=== PATIENT | male | born 1930 | race Caucasian/White ===

== ENCOUNTER 2017-11-28 14:07 | Inpatient (IN) | payer MEDICARE ==
[~2017-11-28] VITALS: Ht 181.6 cm; Wt 78.0 kg
[2017-11-28 14:48] LABS: BASOPHILS % (AUTO) 0.4 % (0.0-5.0); EOSINOPHILS % (AUTO) 2.6 % (0.0-8.0); HEMATOCRIT 35.1 % (42-54); LYMPHOCYTES % (AUTO) 25.6 % (21.0-51.0); MEAN CORPUSCULAR HEMOGLOBIN 31.2 pg (27.0-33.0); MEAN CORPUSCULAR HGB CONC 34.5 g/dL (32.0-36.0); MEAN CORPUSCULAR VOLUME 90.4 fL (79-99); MONOCYTES % (AUTO) 10.4 % (3.0-13.0); PLATELET COUNT (AUTO) 206 K/uL (130-400); RED BLOOD CELL COUNT(AUTO) 3.88 MIL/uL (4.50-6.20); RED CELL DISTRIBUTION WIDTH 13.5 % (11.0-15.5); WHITE BLOOD COUNT (AUTO) 6.7 K/uL (4.8-10.8)
[2017-11-28 15:05] LABS: CREATININE 1.7 mg/dL (0.5-1.5); POTASSIUM 3.7 mmol/L (3.5-5.1)
[2017-11-28 15:07] LABS: INR 0.95 (0.85-1.15); PARTIAL THROMBOPLASTIN TIME 28.2 SEC (26.3-35.5)
[2017-11-28] MEDS ORDERED: GUAIFENESIN-DM 200/20 MG 10 ML PO PRN (17:00)
[2017-11-28] MEDS ORDERED: ZOLPIDEM TARTRATE 5 MG TAB PO PRN (17:00)
[2017-11-28] MEDS ORDERED: MORPHINE SULFATE 2 MG/ML 1ML SYG IV PRN (17:00)
[2017-11-28] MEDS ORDERED: HYDRALAZINE HCL 20 MG/ML VIAL IV PRN (17:00)
[2017-11-28] MEDS ORDERED: LACTULOSE 20 GM/30 ML UDCUP PO PRN (17:00)
[2017-11-28] MEDS ORDERED: ACETAMINOPHEN-CODEINE 300/30MG TAB PO PRN (17:00)
[2017-11-28] MEDS ORDERED: ONDANSETRON HCL 4 MG/2 ML VIAL IV PRN (17:00)
[2017-11-28 19:45] VITALS: BP 121/64
[2017-11-29 00:30] VITALS: BP 129/72
[2017-11-29] MEDS ORDERED: AMLO5TAB2 PO (01:41)
[2017-11-29] MEDS ORDERED: HYDR12.530 PO (01:41)
[2017-11-29] MEDS ORDERED: ATEN25TA PO (01:41)
[2017-11-29] MEDS ORDERED: MULT-1258 PO (01:41)
[2017-11-29] MEDS ORDERED: PRAV20TA4 PO (01:41)
[2017-11-29] MEDS ORDERED: DORZ10DR14 OD (01:41)
[2017-11-29 05:04] VITALS: BP 128/70
[2017-11-29] MEDS ORDERED: CEFAZOLIN SODIUM 1 GM VIAL IVP SCH (06:30)
[2017-11-29 07:30] VITALS: BP 120/59
[2017-11-29] MEDS: ATENOLOL 25 MG TABLET PO SCH (08:59)
[2017-11-29] MEDS ORDERED: MULTIVITAMIN WITH MINERALS TABLET PO SCH (09:00)
[2017-11-29] MEDS: ENOXAPARIN SODIUM 40 MG/0.4 ML SYRINGE SQ SCH (09:00)
[2017-11-29] MEDS ORDERED: DORZOLAMIDE HCL/TIMOLOL MALEAT DROPS 10 ML BOTTLE OD SCH (09:00)
[2017-11-29] MEDS ORDERED: CEFAZOLIN 2GM / 50 ML 50 ML IV ONE (09:00)
[2017-11-29] MEDS: AMLODIPINE BESYLATE 5 MG TAB PO SCH (09:00)
[2017-11-29] MEDS: DORZOLAMIDE HCL/TIMOLOL MALEAT DROPS 10 ML BOTTLE OD SCH ×2 (09:00→20:35)
[2017-11-29] MEDS: PANTOPRAZOLE SODIUM 40 MG TABLET.DR PO SCH (09:00)
[2017-11-29] MEDS: HYDROCHLOROTHIAZIDE 25 MG TABLET PO SCH (09:00)
[2017-11-29 11:30] VITALS: BP 118/65
[2017-11-29] MEDS ORDERED: WATER FOR INJECTION,STERILE 20 ML VIAL IJ SCH (11:30)
[2017-11-29] MEDS: CEFAZOLIN SODIUM 1 GM VIAL IVP SCH (11:30)
[2017-11-29] MEDS: MULTIVITAMIN TABLET PO SCH (11:32)
[2017-11-29] MEDS ORDERED: LIDOCAINE PF 2% 5ML ABBOJECT ONE (13:13)
[2017-11-29] MEDS ORDERED: MIDAZOLAM HCL 1 MG/ML 2ML VIAL ONE (13:13)
[2017-11-29] MEDS ORDERED: PROPOFOL 10 MG/ML 20ML VIAL IV ONE (13:13)
[2017-11-29] MEDS ORDERED: DEXAMETHASONE SOD PHOSPHATE 10MG/ML 1ML VIAL ONE (13:13)
[2017-11-29] MEDS ORDERED: SUCCINYLCHOLINE 200MG/10ML SYR ONE (13:13)
[2017-11-29] MEDS ORDERED: GLYCOPYRROLATE 0.2 MG/ML 5 ML VIAL ONE (13:13)
[2017-11-29] MEDS ORDERED: ONDANSETRON HCL 4 MG/2 ML VIAL ONE (13:13)
[2017-11-29] MEDS ORDERED: FENTANYL CITRATE PF 50 MCG/1 ML 2ML VIAL ONE (13:14)
[2017-11-29 16:00] VITALS: BP 125/64
[2017-11-29 20:17] VITALS: BP 130/64
[2017-11-29] MEDS: ATORVASTATIN CALCIUM 10 MG TABLET PO SCH (20:35)
[2017-11-30] VITALS (23 sets, daily range): BP systolic 102–139; BP diastolic 41–75
[2017-11-30 05:40] LABS: BASOPHILS % (AUTO) 0.3 % (0.0-5.0); EOSINOPHILS % (AUTO) 1.3 % (0.0-8.0); HEMATOCRIT 29.8 % (42-54); LYMPHOCYTES % (AUTO) 22.8 % (21.0-51.0); MEAN CORPUSCULAR HEMOGLOBIN 31.5 pg (27.0-33.0); MEAN CORPUSCULAR HGB CONC 34.9 g/dL (32.0-36.0); MEAN CORPUSCULAR VOLUME 90.2 fL (79-99); NEUTROPHILS % (AUTO) 62.6 % (40.0-77.0); PLATELET COUNT (AUTO) 163 K/uL (130-400); RED CELL DISTRIBUTION WIDTH 13.2 % (11.0-15.5); WHITE BLOOD COUNT (AUTO) 7.9 K/uL (4.8-10.8)
[2017-11-30 06:05] LABS: ALBUMIN 2.8 g/dL (3.5-5.0); CREATININE 1.7 mg/dL (0.5-1.5); POTASSIUM 4.1 mmol/L (3.5-5.1); TOTAL PROTEIN, SERUM 5.7 g/dL (6.0-8.3)
[2017-11-30] MEDS: HYDROCHLOROTHIAZIDE 25 MG TABLET PO SCH (09:00)
[2017-11-30] MEDS: MULTIVITAMIN TABLET PO SCH (09:00)
[2017-11-30] MEDS: ENOXAPARIN SODIUM 40 MG/0.4 ML SYRINGE SQ SCH (09:00)
[2017-11-30] MEDS: AMLODIPINE BESYLATE 5 MG TAB PO SCH (09:00)
[2017-11-30] MEDS: DORZOLAMIDE HCL/TIMOLOL MALEAT DROPS 10 ML BOTTLE OD SCH ×2 (09:00→22:15)
[2017-11-30] MEDS: ATENOLOL 25 MG TABLET PO SCH (09:55)
[2017-11-30] MEDS ORDERED: LACTATED RINGERS 1000ML 1,000 ML IV ONE (10:50)
[2017-11-30] MEDS ORDERED: DEXAMETHASONE SOD PHOSPHATE 10MG/ML 1ML VIAL ONE (15:45)
[2017-11-30] MEDS ORDERED: ONDANSETRON HCL 4 MG/2 ML VIAL ONE (15:45)
[2017-11-30] MEDS ORDERED: LIDOCAINE PF 2% 5ML ABBOJECT ONE (15:45)
[2017-11-30] MEDS ORDERED: PROPOFOL 10 MG/ML 20ML VIAL IV ONE (15:45)
[2017-11-30] MEDS ORDERED: ROCURONIUM BROMIDE 10MG/1ML 5ML VL ONE (15:45)
[2017-11-30] MEDS ORDERED: ROPIVACAINE 0.5% 5MG/ML 30ML IJ ONE (15:46)
[2017-11-30] MEDS ORDERED: FENTANYL CITRATE PF 50 MCG/1 ML 2ML VIAL ONE (16:09)
[2017-11-30] MEDS: CEFAZOLIN SODIUM 1 GM VIAL IVP SCH (16:40)
[2017-11-30] MEDS ORDERED: PHENYLEPHRINE HCL 10 MG/ML 1ML VIAL IV ONE (17:05)
[2017-11-30] MEDS: PANTOPRAZOLE SODIUM 40 MG TABLET.DR PO SCH (18:27)
[2017-11-30] MEDS ORDERED: IPRATROPIUM/ALBUTEROL SULFATE 3 ML SOLUTION IH ONE (20:58)
[2017-11-30] MEDS: ATORVASTATIN CALCIUM 10 MG TABLET PO SCH (22:15)
[2017-11-30] MEDS ORDERED: MORPHINE SULFATE 2 MG/ML 1ML SYG IVP PRN (22:30)
[2017-12-01] VITALS (11 sets, daily range): BP systolic 96–113; BP diastolic 52–62
[2017-12-01] MEDS ORDERED: CEFAZOLIN 2GM / 50 ML 50 ML IV SCH (01:00)
[2017-12-01] MEDS: CEFAZOLIN SODIUM 1 GM VIAL IVP SCH ×2 (01:09→08:45)
[2017-12-01 05:42] LABS: BASOPHILS % (AUTO) 0.2 % (0.0-5.0); LYMPHOCYTES % (AUTO) 7.8 % (21.0-51.0); MEAN CORPUSCULAR HEMOGLOBIN 32.3 pg (27.0-33.0); MEAN CORPUSCULAR VOLUME 89.8 fL (79-99); MONOCYTES % (AUTO) 12.6 % (3.0-13.0); NEUTROPHILS % (AUTO) 79.4 % (40.0-77.0); PLATELET COUNT (AUTO) 163 K/uL (130-400); RED BLOOD CELL COUNT(AUTO) 3.01 MIL/uL (4.50-6.20); RED CELL DISTRIBUTION WIDTH 13.8 % (11.0-15.5); WHITE BLOOD COUNT (AUTO) 9.6 K/uL (4.8-10.8)
[2017-12-01 06:00] LABS: ALBUMIN 2.5 g/dL (3.5-5.0); BILIRUBIN,TOTAL 0.7 mg/dL (0.2-1.0); CREATININE 1.8 mg/dL (0.5-1.5); POTASSIUM 4.3 mmol/L (3.5-5.1); TOTAL PROTEIN, SERUM 5.3 g/dL (6.0-8.3)
[2017-12-01] MEDS ORDERED: IPRATROPIUM/ALBUTEROL SULFATE 3 ML SOLUTION IH PRN (08:30)
[2017-12-01] MEDS: DORZOLAMIDE HCL/TIMOLOL MALEAT DROPS 10 ML BOTTLE OD SCH ×2 (08:33→20:37)
[2017-12-01] MEDS: MULTIVITAMIN TABLET PO SCH (08:34)
[2017-12-01] MEDS: HYDROCHLOROTHIAZIDE 25 MG TABLET PO SCH (08:35)
[2017-12-01] MEDS: ATENOLOL 25 MG TABLET PO SCH (08:35)
[2017-12-01] MEDS: AMLODIPINE BESYLATE 5 MG TAB PO SCH (08:36)
[2017-12-01] MEDS: PANTOPRAZOLE SODIUM 40 MG TABLET.DR PO SCH (08:36)
[2017-12-01] MEDS: ENOXAPARIN SODIUM 40 MG/0.4 ML SYRINGE SQ SCH (08:37)
[2017-12-01] MEDS: IPRATROPIUM/ALBUTEROL SULFATE 3 ML SOLUTION IH SCH (18:32)
[2017-12-01] MEDS: ATORVASTATIN CALCIUM 10 MG TABLET PO SCH (20:37)
[2017-12-02 04:00] VITALS: BP 104/52
[2017-12-02 05:02] VITALS: BP 141/58
[2017-12-02 05:34] LABS: BASOPHILS % (AUTO) 0.2 % (0.0-5.0); EOSINOPHILS % (AUTO) 0.1 % (0.0-8.0); HEMATOCRIT 23.2 % (42-54); LYMPHOCYTES % (AUTO) 10.7 % (21.0-51.0); MEAN CORPUSCULAR HEMOGLOBIN 31.1 pg (27.0-33.0); MEAN CORPUSCULAR HGB CONC 34.6 g/dL (32.0-36.0); MEAN CORPUSCULAR VOLUME 89.7 fL (79-99); MONOCYTES % (AUTO) 15.7 % (3.0-13.0); NEUTROPHILS % (AUTO) 73.3 % (40.0-77.0); PLATELET COUNT (AUTO) 145 K/uL (130-400); RED BLOOD CELL COUNT(AUTO) 2.58 MIL/uL (4.50-6.20); RED CELL DISTRIBUTION WIDTH 13.2 % (11.0-15.5); WHITE BLOOD COUNT (AUTO) 11.3 K/uL (4.8-10.8)
[2017-12-02 05:44] LABS: CREATININE 2.1 mg/dL (0.5-1.5); POTASSIUM 3.5 mmol/L (3.5-5.1)
[2017-12-02] MEDS: IPRATROPIUM/ALBUTEROL SULFATE 3 ML SOLUTION IH SCH ×2 (05:59→18:28)
[2017-12-02 08:20] VITALS: BP 106/49
[2017-12-02] MEDS: ATENOLOL 25 MG TABLET PO SCH ×2 (09:00→09:06)
[2017-12-02] MEDS: HYDROCHLOROTHIAZIDE 25 MG TABLET PO SCH ×2 (09:00→09:06)
[2017-12-02] MEDS: ENOXAPARIN SODIUM 40 MG/0.4 ML SYRINGE SQ SCH (09:05)
[2017-12-02] MEDS: AMLODIPINE BESYLATE 5 MG TAB PO SCH (09:05)
[2017-12-02] MEDS: PANTOPRAZOLE SODIUM 40 MG TABLET.DR PO SCH (09:06)
[2017-12-02] MEDS: MULTIVITAMIN TABLET PO SCH (09:06)
[2017-12-02] MEDS: DORZOLAMIDE HCL/TIMOLOL MALEAT DROPS 10 ML BOTTLE OD SCH ×2 (09:07→20:19)
[2017-12-02] MEDS: SODIUM CHLORIDE 0.9% 1000ML 1,000 ML IV SCH ×2 (10:04→22:45)
[2017-12-02 11:21] VITALS: BP 111/61
[2017-12-02] MEDS ORDERED: MORPHINE SULFATE 8 MG/ML VIAL ONE (15:12)
[2017-12-02 16:10] VITALS: BP 127/61
[2017-12-02] MEDS: ATORVASTATIN CALCIUM 10 MG TABLET PO SCH (20:19)
[2017-12-02 20:44] VITALS: BP 98/53
[2017-12-03] VITALS (7 sets, daily range): BP systolic 95–141; BP diastolic 54–62
[2017-12-03 05:53] LABS: MEAN CORPUSCULAR HEMOGLOBIN 32.7 pg (27.0-33.0); MEAN CORPUSCULAR HGB CONC 36.9 g/dL (32.0-36.0); MEAN CORPUSCULAR VOLUME 88.6 fL (79-99); PLATELET COUNT (AUTO) 135 K/uL (130-400); RED BLOOD CELL COUNT(AUTO) 2.21 MIL/uL (4.50-6.20); RED CELL DISTRIBUTION WIDTH 13.5 % (11.0-15.5); WHITE BLOOD COUNT (AUTO) 10.5 K/uL (4.8-10.8)
[2017-12-03 05:57] LABS: CREATININE 1.9 mg/dL (0.5-1.5); POTASSIUM 3.2 mmol/L (3.5-5.1)
[2017-12-03] MEDS: IPRATROPIUM/ALBUTEROL SULFATE 3 ML SOLUTION IH SCH ×2 (06:00→19:26)
[2017-12-03 06:02] LABS: HEMATOCRIT 19.5 % (42-54)
[2017-12-03 07:27] LABS: LYMPHOCYTES % (MANUAL) 10 % (22-44); MAN.DIFF COMMENT-IMPRESSION MANUAL DIFFERENTIAL; MONOCYTES % (MANUAL) 10 % (2-9); PLATELET MORPHOLOGY COMMENT ADEQUATE; SEGMENTED NEUTROPHILS % 80 % (40-70)
[2017-12-03] MEDS: PANTOPRAZOLE SODIUM 40 MG TABLET.DR PO SCH (08:27)
[2017-12-03] MEDS: DORZOLAMIDE HCL/TIMOLOL MALEAT DROPS 10 ML BOTTLE OD SCH ×2 (08:27→19:14)
[2017-12-03] MEDS: MULTIVITAMIN TABLET PO SCH (08:27)
[2017-12-03] MEDS: TRAMADOL HCL 50 MG TABLET PO PRN ×2 (08:30→16:06)
[2017-12-03] MEDS: AMLODIPINE BESYLATE 5 MG TAB PO SCH (09:00)
[2017-12-03] MEDS: ATENOLOL 25 MG TABLET PO SCH (09:00)
[2017-12-03] MEDS: HYDROCHLOROTHIAZIDE 25 MG TABLET PO SCH (09:00)
[2017-12-03] MEDS: ENOXAPARIN SODIUM 40 MG/0.4 ML SYRINGE SQ SCH (09:00)
[2017-12-03] MEDS ORDERED: MORPHINE SULFATE 2 MG/ML 1ML SYG IV PRN (09:45)
[2017-12-03] MEDS ORDERED: LIDOCAINE HCL-MPF 1% 2ML VIAL IVP PRN (11:30)
[2017-12-03] MEDS ORDERED: POTASSIUM CHLORIDE 10% ELIXIR 20 MEQ/15 ML UDCUP PO PRN (11:30)
[2017-12-03] MEDS ORDERED: POTASSIUM CHLORIDE 20MEQ/100ML 100 ML IV PRN (11:30)
[2017-12-03] MEDS: SODIUM CHLORIDE 0.9% 1000ML 1,000 ML IV SCH (14:35)
[2017-12-03] MEDS ORDERED: SODIUM CHLORIDE 0.9% 250 ML IV ONE (15:36)
[2017-12-03] MEDS: POTASSIUM CHLORIDE 20 MEQ ERTAB PO PRN ×3 (16:04→20:40)
[2017-12-03] MEDS: ATORVASTATIN CALCIUM 10 MG TABLET PO SCH (19:14)
[2017-12-04] MEDS: SODIUM CHLORIDE 0.9% 1000ML 1,000 ML IV SCH ×2 (03:09→15:34)
[2017-12-04 04:27] VITALS: BP 96/62
[2017-12-04 05:12] LABS: BASOPHILS % (AUTO) 0.2 % (0.0-5.0); EOSINOPHILS % (AUTO) 1.8 % (0.0-8.0); LYMPHOCYTES % (AUTO) 13.4 % (21.0-51.0); MEAN CORPUSCULAR HEMOGLOBIN 31.1 pg (27.0-33.0); MEAN CORPUSCULAR HGB CONC 34.7 g/dL (32.0-36.0); MEAN CORPUSCULAR VOLUME 89.7 fL (79-99); MONOCYTES % (AUTO) 15.2 % (3.0-13.0); NEUTROPHILS % (AUTO) 69.4 % (40.0-77.0); PLATELET COUNT (AUTO) 182 K/uL (130-400); RED BLOOD CELL COUNT(AUTO) 2.67 MIL/uL (4.50-6.20); RED CELL DISTRIBUTION WIDTH 13.6 % (11.0-15.5); WHITE BLOOD COUNT (AUTO) 8.9 K/uL (4.8-10.8)
[2017-12-04 05:21] LABS: MAGNESIUM 2.1 mg/dL (1.80-2.40); POTASSIUM 3.8 mmol/L (3.5-5.1)
[2017-12-04] MEDS: IPRATROPIUM/ALBUTEROL SULFATE 3 ML SOLUTION IH SCH ×2 (06:47→18:06)
[2017-12-04 07:00] VITALS: BP 93/41
[2017-12-04] MEDS: AMLODIPINE BESYLATE 5 MG TAB PO SCH (09:16)
[2017-12-04] MEDS: MULTIVITAMIN TABLET PO SCH (09:16)
[2017-12-04] MEDS: ATENOLOL 25 MG TABLET PO SCH (09:17)
[2017-12-04] MEDS: HYDROCHLOROTHIAZIDE 25 MG TABLET PO SCH (09:19)
[2017-12-04] MEDS: PANTOPRAZOLE SODIUM 40 MG TABLET.DR PO SCH (09:20)
[2017-12-04] MEDS: ENOXAPARIN SODIUM 40 MG/0.4 ML SYRINGE SQ SCH (09:21)
[2017-12-04] MEDS: DORZOLAMIDE HCL/TIMOLOL MALEAT DROPS 10 ML BOTTLE OD SCH ×2 (09:39→19:28)
[2017-12-04 11:00] VITALS: BP 103/49
[2017-12-04 16:00] VITALS: BP 114/57
[2017-12-04] MEDS: ATORVASTATIN CALCIUM 10 MG TABLET PO SCH (19:28)
[2017-12-04 20:00] VITALS: BP 121/74
[2017-12-05] VITALS: BP 110/60
[2017-12-05 04:00] VITALS: BP 116/67
[2017-12-05 05:38] LABS: HEMATOCRIT 22.2 % (42-54); MEAN CORPUSCULAR HEMOGLOBIN 32.3 pg (27.0-33.0); MEAN CORPUSCULAR HGB CONC 36.3 g/dL (32.0-36.0); MEAN CORPUSCULAR VOLUME 88.9 fL (79-99); PLATELET COUNT (AUTO) 220 K/uL (130-400); RED CELL DISTRIBUTION WIDTH 13.8 % (11.0-15.5); WHITE BLOOD COUNT (AUTO) 6.4 K/uL (4.8-10.8)
[2017-12-05] MEDS: SODIUM CHLORIDE 0.9% 1000ML 1,000 ML IV SCH ×2 (05:40→18:21)
[2017-12-05 05:48] LABS: CREATININE 1.7 mg/dL (0.5-1.5); POTASSIUM 3.6 mmol/L (3.5-5.1)
[2017-12-05] MEDS: IPRATROPIUM/ALBUTEROL SULFATE 3 ML SOLUTION IH SCH ×2 (07:10→19:11)
[2017-12-05 07:12] VITALS: BP 109/66
[2017-12-05] MEDS: AMLODIPINE BESYLATE 5 MG TAB PO SCH (09:00)
[2017-12-05] MEDS: ATENOLOL 25 MG TABLET PO SCH (10:00)
[2017-12-05] MEDS: HYDROCHLOROTHIAZIDE 25 MG TABLET PO SCH (10:00)
[2017-12-05] MEDS: PANTOPRAZOLE SODIUM 40 MG TABLET.DR PO SCH (10:00)
[2017-12-05] MEDS: DORZOLAMIDE HCL/TIMOLOL MALEAT DROPS 10 ML BOTTLE OD SCH ×2 (10:00→20:33)
[2017-12-05] MEDS: MULTIVITAMIN TABLET PO SCH (10:00)
[2017-12-05] MEDS: ENOXAPARIN SODIUM 40 MG/0.4 ML SYRINGE SQ SCH (10:00)
[2017-12-05 11:00] VITALS: BP 127/66
[2017-12-05 15:00] VITALS: BP 114/64
[2017-12-05 20:00] VITALS: BP 110/57
[2017-12-05] MEDS: ATORVASTATIN CALCIUM 10 MG TABLET PO SCH (20:32)
[2017-12-06] VITALS: BP 115/74
[2017-12-06 04:00] VITALS: BP 123/71
[2017-12-06] MEDS: IPRATROPIUM/ALBUTEROL SULFATE 3 ML SOLUTION IH SCH ×2 (06:30→16:46)
[2017-12-06 07:30] VITALS: BP 117/75
[2017-12-06] MEDS: AMLODIPINE BESYLATE 5 MG TAB PO SCH (09:00)
[2017-12-06] MEDS: ATENOLOL 25 MG TABLET PO SCH (09:47)
[2017-12-06] MEDS: HYDROCHLOROTHIAZIDE 25 MG TABLET PO SCH (09:47)
[2017-12-06] MEDS: MULTIVITAMIN TABLET PO SCH (09:47)
[2017-12-06] MEDS: PANTOPRAZOLE SODIUM 40 MG TABLET.DR PO SCH (09:48)
[2017-12-06] MEDS: DORZOLAMIDE HCL/TIMOLOL MALEAT DROPS 10 ML BOTTLE OD SCH ×2 (09:48→21:13)
[2017-12-06] MEDS: ENOXAPARIN SODIUM 40 MG/0.4 ML SYRINGE SQ SCH (09:55)
[2017-12-06 11:01] VITALS: BP 101/60
[2017-12-06 15:39] VITALS: BP 106/68
[2017-12-06 16:20] LABS: CREATININE 1.5 mg/dL (0.5-1.5); POTASSIUM 3.7 mmol/L (3.5-5.1)
[2017-12-06 20:00] VITALS: BP_SYST 118; BP_SYST 119; BP_DIAS 55; BP_DIAS 56
[2017-12-06] MEDS: ATORVASTATIN CALCIUM 10 MG TABLET PO SCH (21:12)
[2017-12-07] VITALS: BP 103/54
[2017-12-07 04:00] VITALS: BP 123/64
[2017-12-07] MEDS: IPRATROPIUM/ALBUTEROL SULFATE 3 ML SOLUTION IH SCH (06:14)
[2017-12-07 08:25] VITALS: BP 103/62
[2017-12-07] MEDS: PANTOPRAZOLE SODIUM 40 MG TABLET.DR PO SCH (08:28)
[2017-12-07] MEDS: MULTIVITAMIN TABLET PO SCH (08:28)
[2017-12-07] MEDS: TRAMADOL HCL 50 MG TABLET PO PRN ×2 (08:28→16:29)
[2017-12-07] MEDS: ENOXAPARIN SODIUM 40 MG/0.4 ML SYRINGE SQ SCH (08:29)
[2017-12-07] MEDS: DORZOLAMIDE HCL/TIMOLOL MALEAT DROPS 10 ML BOTTLE OD SCH (08:31)
[2017-12-07] MEDS: ATENOLOL 25 MG TABLET PO SCH (08:32)
[2017-12-07] MEDS: AMLODIPINE BESYLATE 5 MG TAB PO SCH (08:32)
[2017-12-07] MEDS: HYDROCHLOROTHIAZIDE 25 MG TABLET PO SCH (08:32)
[2017-12-07] MEDS ORDERED: MORPHINE SULFATE 2 MG/ML 1ML SYG IVP PRN (09:30)
[2017-12-07 11:49] VITALS: BP 98/58
[2017-12-07] MEDS ORDERED: MORPHINE SULFATE 4 MG/1ML SYG IV PRN (15:15)
[2017-12-07] MEDS ORDERED: MORPHINE SULFATE 4 MG/1ML SYG IVP PRN (15:30)
[2017-12-07 16:27] VITALS: BP 96/54
== END 2017-12-07 17:27 | DRG 480 ==
LOC: EDH 14:07 → EDHIP 16:52 → 4AH 18:31
PROVIDERS: ADMIT Family Medicine; ATTEND Family Medicine
PROC: 30233N1 Transfusion of Nonautologous Red Blood Cells into Peripheral Vein, Percutaneous Approach (ICD-10-PCS; principal; 2017-11-29)
PROC: 0QS904Z Reposition Left Femoral Shaft with Internal Fixation Device, Open Approach (ICD-10-PCS; 2017-11-30 16:07)
DX: M97.02XA Periprosthetic fracture around internal prosthetic left hip joint, initial encounter (principal); S72.302A Unspecified fracture of shaft of left femur, initial encounter for closed fracture; Z86.74 Personal history of sudden cardiac arrest; I48.0 Paroxysmal atrial fibrillation; D62 Acute posthemorrhagic anemia; N18.3 Chronic kidney disease, stage 3 (moderate); E78.5 Hyperlipidemia, unspecified; F17.200 Nicotine dependence, unspecified, uncomplicated; I12.9 Hypertensive chronic kidney disease with stage 1 through stage 4 chronic kidney disease, or unspecified chronic kidney disease; I25.10 Atherosclerotic heart disease of native coronary artery without angina pectoris; W01.0XXA Fall on same level from slipping, tripping and stumbling without subsequent striking against object, initial encounter; Z95.0 Presence of cardiac pacemaker; Z96.643 Presence of artificial hip joint, bilateral; Y93.89 Activity, other specified; Y92.26 Movie house or cinema as the place of occurrence of the external cause; Y99.8 Other external cause status; Z28.21 Immunization not carried out because of patient refusal
CPT/HCPCS: 36415; 36430; 71045; 73521; 73552; 76000; 76770; 80048; 80053; 82270; 83735; 85025; 85027; 85610; 85730; 86850; 86900; 86901; 86922; 93005; 94640; 94664; 97039; A4218; J0330; J0690; J1100; J1650; J2001; J2250; J2270; J2370; J2405; J2704; J2795; J3010; J3490; J7030; J7120; P9016